=== PATIENT | female | born 1965 ===

== ENCOUNTER 2022-03-17 15:02 | Outpatient (CLI) | payer BC | END 2022-03-17 15:03 | disposition home or self-care (01) | LOC: BICRAD 15:02 | PROVIDERS: ATTEND Internal Medicine Rheumatology | DX: M05.79 Rheumatoid arthritis with rheumatoid factor of multiple sites without organ or systems involvement (principal); R76.12 Nonspecific reaction to cell mediated immunity measurement of gamma interferon antigen response without active tuberculosis | CPT/HCPCS: 71046 ==